=== PATIENT | female | born 1965 | race Caucasian/White ===

== ENCOUNTER 2018-06-26 19:49 | Emergency (ER) | payer OTHER ==
--- NOTE | 2018-06-26 20:01 | ED ---
Psychiatric Complaint - HPI Summary HPI Summary: This patient is a 53 year old F [facility] ED for a mental health evaluation due to SI for the past few days Patient reports chronic neck and arm pain. Juancho performed a C-Spine T- Spine CT and EKG. - History Of Current Complaint Hx Obtained From: Patient Onset/Duration: Lasting Days Timing: Constant Character: Depressed Related History: Positive For: Prior Psychiatric Issues Has Suicidal: Reports: Thoughts. Denies: With A Plan - Allergies/Home Medications Allergies/Adverse Reactions: Allergies Allergy/AdvReac Type Severity Reaction Status Date / Time No Known Allergies Allergy Verified 06/26/18 20:03 Home Medications: Home Medications Citalopram TAB* [CeleXA TAB*] 60 mg PO DAILY 06/26/18 [History Confirmed ] Estrogen,Con/M-Progest Acet [Prempro 0.3 mg-1.5 mg Tablet] 1 each PO DAILY 06/26 [History Confirmed 06/26/18] Ibuprofen 800 mg PO Q6H PRN 06/26/18 [History Confirmed 06/26/18] Loperamide CAP* [Imodium CAP*] 2 mg PO Q4H PRN 06/26/18 [History Confirmed 06/26] Tolterodine Tartrate [Tolterodine Tartrate ER] 4 mg PO DAILY 06/26/18 [History Confirmed 06/26/18] Zolpidem TAB* [Ambien TAB*] 10 mg PO BEDTIME PRN 06/26/18 [History Confirmed 11/12] PMH/Surg Hx/FS Hx/Imm Hx Endocrine/Hematology History: Denies: Hx Anticoagulant Therapy Musculoskeletal History: Reports: Other Musculoskeletal History - chronic thoracic spine pain EENT History: Denies: Hx Deafness Psychiatric History: Reports: Hx Depression Infectious Disease History: No - Family History Known Family History: Positive: Hypertension Review of Systems Positive: Myalgia - chronic T spine pain Positive: Depressed - SI All Other Systems Reviewed And Are Negative: Yes Physical Exam - Summary Physical Exam Summary: General: well-appearing, no pain distress Skin: warm, color reflects adequate perfusion, dry Head: normal Eyes: EOMI, DURAN ENT: normal Neck: supple, nontender Respiratory: CTA, breath sounds present Cardiovascular: RRR Abdomen: soft, nontender Bowel: present Musculoskeletal: normal, strength/ROM intact, 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 - Differential Dx/Clinical Impression Provider Diagnosis: Mental health problem Discharge - Sign-Out/Discharge Documenting (check all that apply): Sign-Out Patient Signing out patient TO: Hector Siddiqui - mental health evaluation - Discharge Plan Referrals: Delmy Bosch DO [Primary Care Provider] - - Attestation Statements Document Initiated by Scribe: Yes Documenting Scribe: Candy Du Provider For Whom Scribe is Documenting (Include Credential): Chico Connolly MD Scribe Attestation: Candy Melo, scribed for Chico Connolly MD on 06/26/18 at 2207. Scribe Documentation Reviewed: Yes Provider Attestation: The documentation as recorded by the Candy redding accurately reflects the service I personally performed and the decisions made by Chico leone MD
[2018-06-27] MEDS ORDERED: Mouth Piece, Nicotine* 1 EACH CARTRIDGE INH ONE (00:50)
[2018-06-27] MEDS ORDERED: Mouth Piece, Nicotine* 1 EACH CARTRIDGE INH PRN (00:50)
[2018-06-27] MEDS ORDERED: Citalopram TAB* 40 MG PO ONE (00:50)
[2018-06-27] MEDS ORDERED: Nicotine Inhaler* 10 MG AMP INH PRN (00:50)
[2018-06-27] MEDS ORDERED: Naproxen TAB* 250 MG PO ONE (00:51)
[2018-06-27] MEDS ORDERED: Zolpidem TAB* 10 MG PO ONE (00:51)
--- NOTE | 2018-06-27 00:53 | ED ---
Progress - Consult/PCP Time Called: 22:00 Course/Dx - Course Course Of Treatment: DISPOSITION AND MHE PENDING AT SHIFT CHANGE. - Diagnoses Provider Diagnoses: Mental health problem, Depression Discharge - Sign-Out/Discharge Documenting (check all that apply): Patient Departure, Receiving Sign-Out Signing out patient TO: Hector Siddiqui Receiving patient FROM: Chico Connolly - Discharge Plan Disposition: PSYCHIATRIC FACILITY-[facility] Referrals: Delmy Bosch DO [Primary Care Provider] - - Billing Disposition and Condition Disposition: Psychiatric Facility [facility] - Attestation Statements Document Initiated by Scribe: No
[2018-06-27 02:25] VITALS: BP 110/71
--- NOTE | 2018-06-27 04:09 | ED ---
Progress - Progress Note Progress Note: Pt was stable and was dc'ed on this shift. She has departed for home. - Consult/PCP Time Called: 22:00 Course/Dx - Diagnoses Provider Diagnoses: Mental health problem, Depression Discharge - Sign-Out/Discharge Documenting (check all that apply): Patient Departure - Discharge Plan Condition: Stable Disposition: HOME Patient Education Materials: Depression (ED), Suicide Prevention (ED) Referrals: [facility] [Outside] (Please set up an appointment as soon as possible.) Delmy Bosch DO [Primary Care Provider] - - Attestation Statements Document Initiated by Scribe: Yes Documenting Scribe: Juliette Jordan Provider For Whom Scribe is Documenting (Include Credential): Hector Siddiqui MD. Scribe Attestation: Juliette Melo, scribed for Hector Siddiqui MD. on 06/27/18 at 0408.
== END 2018-06-27 02:36 | disposition home or self-care (01) ==
LOC: ED 19:49
DX: F32.9 Major depressive disorder, single episode, unspecified (principal); F48.9 Nonpsychotic mental disorder, unspecified; R45.851 Suicidal ideations; M54.2 Cervicalgia; M54.6 Pain in thoracic spine; M79.603 Pain in arm, unspecified; G89.29 Other chronic pain
CPT/HCPCS: 36415; 86803; 99284

== ENCOUNTER 2023-05-01 20:45 | Inpatient (IN) ==
[2023-05-01] MEDS ORDERED: Morphine 2 MG/ML SYRINGE IV PRN (21:40)
[2023-05-01] MEDS ORDERED: Lactated Ringers 1000 ml BAG 1,000 ML IV SCH (22:00)
[2023-05-01] MEDS ORDERED: Lactated Ringers 1000 ml BAG 1,000 ML IV ONE (22:09)
[2023-05-01] MEDS ORDERED: Dextrose 50% Syringe 50 ml 25 GM/50 ML SYRINGE IV PUSH PRN (22:09)
[2023-05-01] MEDS: Ondansetron 4 mg VIAL 2 MG/ML 2 ml VIAL IV PRN (22:51)
[2023-05-01] MEDS: HYDROmorphone 1 MG/1 ML SYRINGE IV SLOW PU PRN (23:12)
[2023-05-01] MEDS: Lactated Ringers 1000 ml BAG 1,000 ML IV SCH (23:56)
[2023-05-02 01:27] LABS: Urine Osmo 871 mOsm/kg (150-1150)
[2023-05-02] MEDS: Ondansetron 4 mg VIAL 2 MG/ML 2 ml VIAL IV PRN ×5 (03:24→20:03)
[2023-05-02] MEDS: Lactated Ringers 1000 ml BAG 1,000 ML IV SCH ×3 (06:02→17:40)
[2023-05-02 06:47] LABS: ABS Basophils 0.1 10^3/uL (0.0-0.1); ABS Eosinophils 0.1 10^3/uL (0.0-0.5); ABS Lymphocytes 2.2 10^3/uL (1.0-4.8); ABS Monocytes 0.5 10^3/uL (0.0-0.9); Eosinophil % 1.2 %; Hematocrit 39.7 % (35-45); Hemoglobin 13.5 g/dL (11.5-14.3); Lymphocyte % 18.3 %; Mean Corpuscular Hemoglobin 32.2 pg (27-33); Mean Corpuscular Hgb Conc 33.9 g/dL (31-36); Mean Platelet Volume 8.8 fL (7.5-11.2); Platelet Count 164 10^3/uL (150-450); Red Blood Count 4.18 10^6/uL (3.63-4.92); Red Cell Distribution Width 13.3 % (12-17); White Blood Count 11.9 10^3/uL (3.8-11.8)
[2023-05-02 07:02] LABS: Albumin 3.3 g/dL (3.2-5.2); Albumin/Globulin Ratio 1.3 (1-3); Calcium 8.4 mg/dL (8.6-10.3); Creatinine, Serum 0.52 mg/dL (0.51-0.95); Globulin 2.5 g/dL (2-4); Magnesium 2.3 mg/dL (1.9-2.7); Potassium 4.1 mmol/L (3.5-5.0); Total Bilirubin 0.4 mg/dL (0.2-1.0); Total Protein 5.8 g/dL (6.4-8.9); eGFR CKD-EPI 106.3 (>60)
[2023-05-02] MEDS: HYDROmorphone 1 MG/1 ML SYRINGE IV SLOW PU PRN ×4 (07:50→20:03)
[2023-05-03] MEDS: Lactated Ringers 1000 ml BAG 1,000 ML IV SCH ×2 (02:32→10:36)
[2023-05-03] MEDS: Ondansetron 4 mg VIAL 2 MG/ML 2 ml VIAL IV PRN ×5 (05:36→23:25)
[2023-05-03] MEDS: HYDROmorphone 1 MG/1 ML SYRINGE IV SLOW PU PRN ×5 (05:37→23:25)
[2023-05-03 06:59] LABS: ABS Eosinophils 0.1 10^3/uL (0.0-0.5); ABS Lymphocytes 1.3 10^3/uL (1.0-4.8); ABS Monocytes 0.5 10^3/uL (0.0-0.9); ABS Neutrophils 6.2 10^3/uL (1.5-7.6); ABS Nucleated RBC 0.01 10^3/ul; Eosinophil % 1.1 %; Hematocrit 34.7 % (35-45); Hemoglobin 11.7 g/dL (11.5-14.3); Lymphocyte % 16.4 %; Mean Corpuscular Hgb Conc 33.8 g/dL (31-36); Mean Corpuscular Volume 94.6 fL (80-97); Mean Platelet Volume 8.4 fL (7.5-11.2); Nucleated Red Blood Cells % 0.1 /100 WBC (0.0-0.4); Platelet Count 139 10^3/uL (150-450); Red Blood Count 3.67 10^6/uL (3.63-4.92); Red Cell Distribution Width 13.6 % (12-17); White Blood Count 8.2 10^3/uL (3.8-11.8)
[2023-05-03 07:16] LABS: Albumin 3.1 g/dL (3.2-5.2); Albumin/Globulin Ratio 1.4 (1-3); Calcium 8.4 mg/dL (8.6-10.3); Creatinine, Serum 0.56 mg/dL (0.51-0.95); Globulin 2.2 g/dL (2-4); Potassium 4.3 mmol/L (3.5-5.0); Total Bilirubin 0.4 mg/dL (0.2-1.0); Total Protein 5.3 g/dL (6.4-8.9); eGFR CKD-EPI 104.4 (>60)
[2023-05-04 05:38] LABS: ABS Eosinophils 0.1 10^3/uL (0.0-0.5); ABS Lymphocytes 1.5 10^3/uL (1.0-4.8); ABS Monocytes 0.6 10^3/uL (0.0-0.9); ABS Nucleated RBC 0.01 10^3/ul; Eosinophil % 1.3 %; Hematocrit 35.4 % (35-45); Lymphocyte % 20.5 %; Mean Corpuscular Hemoglobin 32.2 pg (27-33); Mean Corpuscular Volume 94.7 fL (80-97); Mean Platelet Volume 8.6 fL (7.5-11.2); Nucleated Red Blood Cells % 0.1 /100 WBC (0.0-0.4); Platelet Count 151 10^3/uL (150-450); Red Blood Count 3.75 10^6/uL (3.63-4.92); Red Cell Distribution Width 13.2 % (12-17); White Blood Count 7.2 10^3/uL (3.8-11.8)
[2023-05-04 06:17] LABS: Albumin 3.2 g/dL (3.2-5.2); Albumin/Globulin Ratio 1.3 (1-3); Calcium 8.8 mg/dL (8.6-10.3); Creatinine, Serum 0.6 mg/dL (0.51-0.95); Globulin 2.5 g/dL (2-4); Total Bilirubin 0.4 mg/dL (0.2-1.0); Total Protein 5.7 g/dL (6.4-8.9); eGFR CKD-EPI 102.7 (>60)
[2023-05-04] MEDS: Ondansetron 4 mg VIAL 2 MG/ML 2 ml VIAL IV PRN (07:58)
[2023-05-04] MEDS: HYDROmorphone 1 MG/1 ML SYRINGE IV SLOW PU PRN (08:00)
[2023-05-04 13:55] VITALS: BP 114/62
== END 2023-05-04 16:55 | disposition home or self-care (01) | DRG 439 ==
LOC: ED 20:45 → SUATTDRO 21:01 → EDHOLD 21:01 → MED 23:26
PROVIDERS: ADMIT Student in an Organized Health Care Education/Training Program; ATTEND Internal Medicine Hematology & Oncology

== ENCOUNTER 2024-07-29 02:58 | Observation (INO) ==
[2024-07-29] MEDS: Lactated Ringers 1000 ml BAG 1,000 ML IV ONE (04:39)
[2024-07-29 09:23] LABS: Hematocrit 33.9 % (35-45); Hemoglobin 11.6 g/dL (11.5-14.3); Mean Corpuscular Hemoglobin 30.8 pg (27-33); Mean Corpuscular Hgb Conc 34.2 g/dL (31-36); Mean Corpuscular Volume 90.1 fL (80-97); Mean Platelet Volume 7.6 fL (7.5-11.2); Platelet Count 152 10^3/uL (150-450); Red Blood Count 3.76 10^6/uL (3.63-4.92); Red Cell Distribution Width 15.5 % (12-17); White Blood Count 8.4 10^3/uL (3.8-11.8)
[2024-07-29 09:47] LABS: Urine Appearance Clear; Urine Bilirubin Negative (Negative); Urine Blood Negative (Negative); Urine Color Yellow; Urine Glucose Trace (Negative); Urine Ketones 1+ (Negative); Urine Nitrite Negative (Negative); Urine Protein Negative (Negative); Urine Specific Gravity 1.016 (1.002-1.030); Urine Urobilinogen Negative (Negative)
[2024-07-29 09:48] LABS: ABS Basophils 0.1 10^3/uL (0.0-0.1); ABS Eosinophils 0.1 10^3/uL (0.0-0.5); ABS Lymphocytes 1.7 10^3/uL (1.0-4.8); ABS Monocytes 0.5 10^3/uL (0.0-0.9); ABS Nucleated RBC 0.02 10^3/ul; Eosinophil % 1.3 %; Lymphocyte % 20.3 %; Nucleated Red Blood Cells % 0.2 %/100WBC (0.0-0.8); RBC Morphology Normal (Normal)
[2024-07-29 09:51] LABS: Urine Bacteria Absent /HPF (Absent); Urine Red Blood Cell Trace(0-2/hpf) /HPF (0-Trace); Urine Squamous Epithelial Cell Present /HPF (Absent); Urine White Blood Cell Trace(0-5/hpf) /HPF (0-Trace)
[2024-07-29 10:01] LABS: ALT 19 U/L (7-52); AST 44 U/L (13-39); Acetaminophen < 15 mcg/mL; Albumin 3.4 g/dL (3.2-5.2); Albumin/Globulin Ratio 1.1 (1-3); Alcohol, S < 13 mg/dL (<13); Alkaline Phosphatase 79 U/L (35-149); Anion Gap 12 mmol/L (2-16); Blood Urea Nitrogen 11 mg/dL (6-24); CO2 Carbon Dioxide 26 mmol/L (22-32); Calcium 9.3 mg/dL (8.6-10.3); Chloride 103 mmol/L (101-111); Creatine Kinase 491 U/L (10-223); Globulin 3.1 g/dL (2-4); Glucose 135 mg/dL (70-100); Potassium 3.5 mmol/L (3.5-5.0); Salicylate < 2.50 mg/dL (<30); Sodium 141 mmol/L (135-145); Total Bilirubin 1.1 mg/dL (0.2-1.0); Total Protein 6.5 g/dL (6.4-8.9); eGFR CKD-EPI 102.1 (>60)
[2024-07-29 10:02] LABS: Urine Benzodiazepine Screen Presumptive Positive (None Detect); Urine Cannabinoids Screen Presumptive Positive (None Detect); Urine Opiates Screen None Detected (None Detect)
[2024-07-29 10:14] LABS: TSH Ultra Thyroid Stim Horm 0.25 mcIU/mL (0.34-5.60)
[2024-07-29] MEDS ORDERED: Dextrose 50% Syringe 50 ml 25 GM/50 ML SYRINGE IV PUSH PRN (18:11)
[2024-07-29] MEDS: Lactated Ringers 1000 ml BAG 1,000 ML IV SCH (20:01)
[2024-07-29 21:06] LABS: Folate > 20.00 ng/mL (5.90-24.80)
[2024-07-29 21:07] LABS: Vitamin B12 1026 pg/mL (180-914)
[2024-07-29] MEDS: Lactulose 30 ml UDC PO SCH (23:24)
[2024-07-29 23:41] LABS: Magnesium 1.6 mg/dL (1.9-2.7)
[2024-07-30] MEDS: Prochlorperazine 5 mg/ml 2 ml VIAL (10 mg) IV ONE ×2 (01:33→05:23)
[2024-07-30] MEDS: Magnesium Sulf 4 GM/100 ML IV 4,000 MG/100 ML BAG IVPB ONE (03:54)
[2024-07-30 06:51] LABS: ABS Basophils 0.1 10^3/uL (0.0-0.1); ABS Lymphocytes 0.9 10^3/uL (1.0-4.8); ABS Monocytes 0.1 10^3/uL (0.0-0.9); ABS Neutrophils 6.8 10^3/uL (1.5-7.6); Eosinophil % 0.2 %; Hematocrit 33.3 % (35-45); Hemoglobin 11.3 g/dL (11.5-14.3); Mean Corpuscular Hemoglobin 30.9 pg (27-33); Mean Platelet Volume 7.3 fL (7.5-11.2); Platelet Count 189 10^3/uL (150-450); Red Blood Count 3.66 10^6/uL (3.63-4.92); Red Cell Distribution Width 15.3 % (12-17); White Blood Count 7.8 10^3/uL (3.8-11.8)
[2024-07-30 07:25] LABS: Albumin 3.4 g/dL (3.2-5.2); Albumin/Globulin Ratio 1.1 (1-3); Calcium 8.6 mg/dL (8.6-10.3); Creatinine, Serum 0.63 mg/dL (0.51-0.95); Potassium 3.6 mmol/L (3.5-5.0); Total Bilirubin 0.8 mg/dL (0.2-1.0); Total Protein 6.4 g/dL (6.4-8.9); eGFR CKD-EPI 100.9 (>60)
[2024-07-30] MEDS: Ondansetron 4 mg VIAL 2 MG/ML 2 ml VIAL IV PRN (09:15)
[2024-07-30] MEDS ORDERED: LORazepam 2 mg VIAL 1 ml IV PUSH PRN ×2 (12:10→12:32)
[2024-07-30] MEDS: Lactated Ringers 1000 ml BAG 1,000 ML IV SCH (12:32)
[2024-07-30 12:36] LABS: Venous Bicarbonate HCO3 26.1 mmol/L (24-28)
[2024-07-30] MEDS ORDERED: Lorazepam PYXIS KEY PRN (12:37)
[2024-07-30] MEDS: Iodixanol (CONTRAST) 320 MG/ML 100 ML SDV IV ONE (13:28)
[2024-07-30] MEDS: Insulin GLARGINE 100 un/ml 10 ml VIAL SUBCUT ONE (14:51)
[2024-07-30 16:02] LABS: Albumin 3.2 g/dL (3.2-5.2); Albumin/Globulin Ratio 1.1 (1-3); Calcium 8.1 mg/dL (8.6-10.3); Creatinine, Serum 0.63 mg/dL (0.51-0.95); Globulin 2.8 g/dL (2-4); Potassium 3.5 mmol/L (3.5-5.0); Total Bilirubin 0.8 mg/dL (0.2-1.0); eGFR CKD-EPI 100.9 (>60)
[2024-07-30 17:08] LABS: INR 1.1 (0.85-1.14)
[2024-07-31 07:19] LABS: ABS Basophils 0.1 10^3/uL (0.0-0.1); ABS Eosinophils 0.1 10^3/uL (0.0-0.5); ABS Lymphocytes 1.9 10^3/uL (1.0-4.8); ABS Monocytes 0.4 10^3/uL (0.0-0.9); ABS Neutrophils 2.8 10^3/uL (1.5-7.6); ABS Nucleated RBC 0.01 10^3/ul; Eosinophil % 2.7 %; Hematocrit 32.8 % (35-45); Hemoglobin 11.3 g/dL (11.5-14.3); Lymphocyte % 35.2 %; Mean Corpuscular Hemoglobin 30.8 pg (27-33); Mean Corpuscular Hgb Conc 34.4 g/dL (31-36); Mean Corpuscular Volume 89.5 fL (80-97); Mean Platelet Volume 7.2 fL (7.5-11.2); Nucleated Red Blood Cells % 0.1 %/100WBC (0.0-0.8); Platelet Count 187 10^3/uL (150-450); Red Blood Count 3.67 10^6/uL (3.63-4.92); Red Cell Distribution Width 15.2 % (12-17); White Blood Count 5.4 10^3/uL (3.8-11.8)
[2024-07-31 07:24] LABS: INR 1.06 (0.85-1.14)
[2024-07-31 07:48] LABS: Calcium 8.2 mg/dL (8.6-10.3); Creatinine, Serum 0.62 mg/dL (0.51-0.95); Magnesium 1.7 mg/dL (1.9-2.7); Potassium 3.7 mmol/L (3.5-5.0); eGFR CKD-EPI 101.3 (>60)
[2024-07-31] MEDS: Insulin GLARGINE 100 un/ml 10 ml VIAL SUBCUT SCH (07:48)
[2024-07-31] MEDS: Ondansetron 4 mg VIAL 2 MG/ML 2 ml VIAL IV PRN (08:35)
[2024-07-31 13:11] VITALS: BP 121/76
== END 2024-07-31 14:45 | disposition home or self-care (01) ==
LOC: EDHOLD 02:58 → ED 02:58 → SUATTDRO 16:23 → MED 21:14
PROVIDERS: ADMIT Student in an Organized Health Care Education/Training Program; ATTEND Internal Medicine